=== PATIENT | male | born 1975 | race Caucasian/White ===

== ENCOUNTER 2024-05-31 15:44 | Emergency (ER) | payer BC ==
[2024-05-31] MEDS: Tetracaine HCl/PF 0.5% 4 ML Bottle EYELF ONE (16:10)
[2024-05-31] MEDS: Fluorescein 1 MG Ophth Strip EYEBOTH ONE (16:12)
[2024-05-31] MEDS: Tetracaine HCl/PF 0.5% 4 ML Bottle EYEBOTH ONE (16:12)
[2024-05-31] MEDS: Sodium Chloride 0.9% 500 ML IRR ONE (17:29)
[2024-05-31] MEDS: Ciprofloxacin 0.3% Ophth Soln 2.5 ML Bottle EYELF STA (17:50)
== END 2024-05-31 17:51 | disposition home or self-care (01) ==
LOC: MW.ED 15:44
DX: S05.02XA Injury of conjunctiva and corneal abrasion without foreign body, left eye, initial encounter (principal); I10 Essential (primary) hypertension; E78.00 Pure hypercholesterolemia, unspecified; E11.9 Type 2 diabetes mellitus without complications; Z75.8 Other problems related to medical facilities and other health care; Z87.891 Personal history of nicotine dependence; Z79.4 Long term (current) use of insulin; Z79.899 Other long term (current) drug therapy; W45.8XXA Other foreign body or object entering through skin, initial encounter
CPT/HCPCS: 99283; A9270; J7050; J3490